=== PATIENT | female | born 1985 | race Caucasian/White ===

== ENCOUNTER 2022-01-17 04:40 | Emergency (ER) | payer MEDICARE ==
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
[2022-01-17 06:28] LABS: Basophils % (A) 0 %; Eosinophils # (A) 0.1 k/uL (0-0.7); Eosinophils % (A) 1 %; HCT 45.4 % (34.0-46.0); HGB 14.6 gm/dL (11.4-16.0); Lymphocytes % (A) 17 %; MCHC 32.2 g/dL (31.0-37.0); MCV 90.2 fL (80.0-100.0); Mean Platelet Volume 8.9; Monocytes # (A) 0.5 k/uL (0-1.0); Monocytes % (A) 5 %; Neutrophils # (A) 8.9 k/uL (1.3-7.7); Neutrophils % (A) 76 %; Platelet Count 311 k/uL (150-450); RBC 5.04 m/uL (3.80-5.40); RDW 12.5 % (11.5-15.5); WBC 11.8 k/uL (3.8-10.6)
--- NOTE | 2022-01-17 06:40 | CT ---
EXAMINATION TYPE: CT brain wo con DATE OF EXAM: 01/17/2022 COMPARISON: None HISTORY: Seizure Activity CT DLP: 1076.4 mGycm Automated exposure control for dose reduction was used. There is extensive grade white matter hypodensity in the cerebral hemispheres. This is more noticeabl e in the right temporal lobe and in both frontal lobes. There is anterior left temporal lobe hypodens ity. No midline shift. No evidence of intracranial hemorrhage. Calvarium is intact. IMPRESSION: Extensive bilateral encephalomalacia. No acute intracranial abnormality.
[2022-01-17 07:07] LABS: Albumin 4.2 g/dL (3.5-5.0); Calcium 8.7 mg/dL (8.4-10.2); Potassium 4.1 mmol/L (3.5-5.1); Total Bilirubin 0.2 mg/dL (0.2-1.3); Total Protein 6.4 g/dL (6.3-8.2)
[2022-01-17 08:19] VITALS: BP 120/78; PULSE 81; RESP 18; TEMP 98.4
== END 2022-01-17 08:00 | disposition home or self-care (01) ==
LOC: EEVIPCON 04:40 → EC 04:40
DX: R56.9 Unspecified convulsions (principal)
CPT/HCPCS: 36415; 70450; 80053; 83735; 85025; 93005